=== PATIENT | female | born 1985 | race Caucasian/White ===

== ENCOUNTER 2023-12-25 15:49 | Emergency (ER) | payer BC, OTHER, SELFPAY ==
--- NOTE | ~2023-12-25 | CT_ITS ---
EXAMINATION: CT abdomen pelvis wo con DATE: 12/25/2023 16:57 INDICATION: karla flank pain, uti sx's TECHNIQUE: Computed tomography (CT) of the abdomen and pelvis was performed without intravenous contr ast. Automated exposure control and iterative reconstruction technique were employed. The dose-length product was 489.28 mGy-cm. COMPARISON: None. FINDINGS: Lower thorax: Unremarkable Liver: Enlarged. Biliary/Gallbladder: Gallbladder is absent. No bile duct dilation. Pancreas: No mass or duct dilation. Spleen: Normal. Adrenals:No mass. Kidneys: Bilateral perinephric stranding. No suspicious mass. Punctate nonobstructing left lower pole calcification. No hydronephrosis. GI tract: Small hiatal hernia. No small or large bowel dilation. Normal appendix. Mesentery/Peritoneum: No ascites, mass, or free air. Retroperitoneum: No mass. Pelvis: Pelvic organs are within normal limits. Soft Tissues: Soft tissues and body wall unremarkable. Bones: No acute osseous finding. IMPRESSION: Hepatomegaly. Bilateral perinephric stranding, may be secondary to pyelonephritis or medical renal disease. No CT e vidence of obstructive uropathy. Reviewed, dictated and finalized at location K. IMPRESSION: Hepatomegaly. Bilateral perinephric stranding, may be secondary to pyelonephritis or medical renal disease. No CT evidence of obstructive uropathy.
[2023-12-25 16:06] VITALS: BP 126/67; PULSE 103; RESP 20; TEMP 36.6; O2SAT 98
--- NOTE | 2023-12-25 16:25 | ED.FEMALEGU ---
HPI - Female Genitourinary General Chief complaint: Urogenital-Female Stated complaint: my kidneys hurt Time Seen by Provider: 12/25/23 16:16 Source: patient Mode of arrival: ambulatory Limitations: no limitations History of Present Illness HPI Narrative: Patient is a 38-year-old female who presents to the ED with report of bilateral flank pain. Patient reports having pain over the last 3-4 days. Worse on R side. Does intermittently radiate to her lower abdomen. C/o dysuria, urinary frequency, small urine voids, nausea, chills. Denies hematuria, fever, vomiting, diarrhea/constipation, hx UTI or kidney stones. Patient has not taken anything for pain today. Related Data Allergies Allergy/AdvReac Type Severity Reaction Status Date / Time No Known Allergies Allergy Mild Verified 12/25/23 16:10 Review of Systems Review of Systems: CONSTITUTIONAL: Reports chills. Denies fever. GASTROINTESTINAL: See HPI GENITOURINARY: See HPI MUSCULOSKELETAL: See HPI NEUROLOGIC: Denies headache, dizziness, numbness, or weakness. All systems reviewed & are unremarkable except as noted in HPI and below PMFSH Family History Family History Mother Patient's mother is Father Patient's father is in good health Social History Social History Smoking status: Current every day smoker Second hand tobacco smoke exposure: No Alcohol intake: current Exam Narrative: GENERAL: Appears older than stated age, well-nourished, non-toxic, in no acute distress. HEAD: Normocephalic, atraumatic. RESPIRATORY: Airway patent, respirations nonlabored. Clear to auscultation bilaterally, no rales, rhonchi, wheezing. CARDIOVASCULAR: Regular rate and rhythm without murmurs, rubs, or gallops. ABDOMINAL: Soft, no significant tenderness throughout lower abdomen, nondistended. Normoactive BS. Bilateral CVA tenderness to percussion. MUSCULOSKELETAL: Moves all extremities. No gross deformities. SKIN: Warm, dry, normal color. NEURO: A&O X3. Speech clear. PSYCHIATRIC: Anxious, tearful. Normal interaction. Course Vital Signs Vital signs: Vital Signs Temperature 97.8 F 12/25/23 16:06 Pulse Rate 103 H 12/25/23 16:06 Respiratory Rate 20 12/25/23 16:06 Blood Pressure 126/67 12/25/23 16:06 Pulse Oximetry 98 12/25/23 16:06 Oxygen Delivery Room Air 12/25/23 16:06 Temperature 97.8 F 12/25/23 16:06 Pulse Rate 103 H 12/25/23 16:06 Respiratory Rate 20 12/25/23 16:06 Blood Pressure 126/67 12/25/23 16:06 Pulse Oximetry 98 12/25/23 16:06 Oxygen Delivery Room Air 12/25/23 16:06 MDM - Female Genitourinary MDM Narrative Medical decision making narrative: Patient presented to ED with c/o urinary sx's, karla flank pain X several days. Patient mildly tachycardic upon arrival, anxious appearing, tearful, but in no acute distress. Laying on her side on the ED stretcher. Laboratory studies with leukocytosis of 11.8. Neutrophil predominance. No bandemia. CMP with stable electrolytes, bicarb 20, fluids ongoing. No anion gap. Stable kidney function. Lactic acid within normal limits at 1.4. Normal LFTs. Urinalysis positive for infection. Sent for culture. Rocephin given in the ED. CT abdomen pelvis obtained showing possible bilateral pyelonephritis, no obstructing stone. No other significant abnormalities. Discussed lab and imaging findings with patient. She does not meet SIRS/sepsis criteria at this time. Discussed discharge home with oral antibiotics and pain medication. Patient feels comfortable this plan. She does not wish to be admitted. Discussed very strict return precautions. She is in agreement with plan. Discharged in stable condition. Medical Records Attestation: I reviewed the patient's medical records. Lab Data Attestation: I reviewed the patient's lab results. 12/24
[2023-12-25 16:45] LABS: Basophils Percent Auto 0.3 % (0.2-1.2); Eosinophils Absolute Auto 0.1 K/mm3 (0-0.3); Eosinophils Percent Auto 0.8 % (0-4.4); Hematocrit 35.7 % (37.0-47.0); Hemoglobin 11.3 g/dL (12.0-15.0); Immature Granulocyte Absolute 0.07 K/mm3 (0.00-0.031); Immature Granulocyte Percent A 0.6 % (0-0.5); Lymphocytes Absolute Auto 0.65 K/mm3 (0.9-3.2); Lymphocytes Percent Auto 5.5 % (18.3-44.2); Mean Corpuscular HGB Conc 31.7 g/dl (32-36); Mean Corpuscular Volume 85.2 fl (80-100); Mean Platelet Volume 8.2 fl (7.4-10.4); Monocytes Absolute Auto 1.5 K/mm3 (0.1-0.6); Monocytes Percent Auto 12.8 % (2.6-8.5); Neutrophils Absolute Auto 9.4 K/mm3 (1.3-6.7); Platelet Count Result 246 k/mm3 (150-375); Red Blood Count 4.19 M/mm3 (4.2-5.4); Red Cell Distribution Width 15.1 % (11.5-14.5); White Blood Count 11.8 K/mm3 (4.5-10.0)
[2023-12-25] MEDS: ONDANSETRON INJ 4 MG/2 ML VIAL IV PUSH (16:45)
[2023-12-25] MEDS: MORPHINE SULFATE (*CRX) 4 MG/ML INJ IV PUSH (16:46)
[2023-12-25] MEDS: ACETAMINOPHEN 500 MG TABLET 1000 MG PO (16:46)
[2023-12-25] MEDS: SODIUM CHLORIDE 0.9% IV 1,000 ML 999 ML IV CONT (16:46)
[2023-12-25 16:52] LABS: Appearance Urine Cloudy (Clear); Bacteria Urine None Seen /hpf; Bilirubin Urine Negative (Negative); Blood Urine 2+ (Negative); Color Urine Yellow (Yellow); Glucose Urine UA Trace mg/dL (Negative); Ketones Urine Negative (Negative); Leukocyte Esterase Ur 3+ LEU/UL (Negative); Nitrate Urine Negative (Negative); Non Pathogenic Casts 0-2; Protein Urine 2+ mg/dL (Negative); RBC Urine 0-2 /hpf (0-2); Specific Grav Ur 1.005 (1.001-1.035); Squamous Epithelial Cell Urine None Seen /hpf (Few); Urobilinogen Urine 0.2 mg/dL (<2.0); WBC Urine >100 /hpf (0-3); pH Urine 6.5 (5.0-9.0)
[2023-12-25 16:53] LABS: Add Urine Microscopic? YES
[2023-12-25 16:55] LABS: Alanine Aminotransferase 18 U/L (6-35); Albumin Level 3.7 g/dL (3.5-5.1); Alkaline Phosphatase 89 U/L (38-126); Anion Gap 9 mmol/L (4-12); Aspartate Amino Transferase 23 U/L (14-36); Bilirubin,Total 0.6 mg/dL (0.2-1.3); Blood Urea Nitrogen 6 mg/dL (7-17); Carbon Dioxide 20 mmol/L (22-30); Chloride 105 mmol/L (98-107); Estimated CRCL calculation 76 ml/min; Estimated Glomerular Filt Rate > 60; Glucose 116 mg/dL (65-110); Lactic Acid Reflex 1.4 mmol/L (0.7-2.0); Potassium 3.5 mmol/L (3.4-5.0); Sodium 134 mmol/L (137-145)
[2023-12-25 17:50] VITALS: BP 141/74; PULSE 82; RESP 20; O2SAT 98
== END 2023-12-25 17:51 | disposition home or self-care (01) ==
PROVIDERS: Emergency Provider Physician Assistant
DX: N39.0 Urinary tract infection, site not specified (principal); N10 Acute pyelonephritis; F17.210 Nicotine dependence, cigarettes, uncomplicated
CPT/HCPCS: 36415; 74176; 80053; 81001; 81025; 83605; 85025; 87077; 87086; 87088; 87186; 96361; 96374; 96375; 99284; A9270; J0696; J2270; J2405; J7030